=== PATIENT | female | born 1985 | race Two or more races ===

== ENCOUNTER 2019-04-01 11:50 | Outpatient (CLI) | payer OTHER | END 2019-04-01 12:04 | disposition home or self-care (01) | LOC: MAMO-SONO 11:50 | DX: N60.11 Diffuse cystic mastopathy of right breast (principal); N60.12 Diffuse cystic mastopathy of left breast ==

== ENCOUNTER 2020-10-07 07:26 | Outpatient (CLI) | payer OTHER | END 2020-10-07 07:28 | disposition home or self-care (01) | LOC: MAMO-SONO 07:26 | PROVIDERS: ATTEND Specialist | DX: R92.1 Mammographic calcification found on diagnostic imaging of breast (principal) ==

== ENCOUNTER 2021-10-13 13:12 | Outpatient (CLI) | payer OTHER | END 2021-10-13 13:23 | disposition home or self-care (01) | LOC: MAMO-SONO 13:12 | PROVIDERS: ATTEND Specialist | DX: R92.0 Mammographic microcalcification found on diagnostic imaging of breast (principal) ==

== ENCOUNTER 2023-02-07 13:58 | Outpatient (CLI) | payer OTHER | END 2023-02-07 14:21 | disposition home or self-care (01) | LOC: MAMO-SONO 13:58 | PROVIDERS: ATTEND Obstetrics & Gynecology Gynecology | DX: N60.11 Diffuse cystic mastopathy of right breast (principal); N60.12 Diffuse cystic mastopathy of left breast ==

== ENCOUNTER 2024-03-03 13:00 | Outpatient (CLI) | payer OTHER | END 2024-03-03 13:13 | disposition home or self-care (01) | LOC: MAMO-SONO 13:00 | PROVIDERS: ATTEND Specialist | DX: N60.11 Diffuse cystic mastopathy of right breast (principal); N60.12 Diffuse cystic mastopathy of left breast ==

== ENCOUNTER 2025-04-07 08:29 | Outpatient (CLI) | payer OTHER | END 2025-04-07 08:33 | disposition home or self-care (01) | LOC: MAMO-SONO 08:29 | PROVIDERS: ATTEND Specialist | DX: D24.1 Benign neoplasm of right breast (principal); N60.12 Diffuse cystic mastopathy of left breast ==